=== PATIENT | female | born 1990 | race Two or more races ===

== ENCOUNTER 2025-05-23 08:50 | Outpatient (AMB) | payer BC, SELFPAY ==
[2025-05-23 09:07] VITALS: BP 137/88; PULSE 84; RESP 16; TEMP 36.5; O2SAT 98; BMI 41.3
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
== END 2025-05-23 09:40 | disposition home or self-care (01) ==
LOC: HODSOBC 08:50
PROVIDERS: Supervising Provider Obstetrics & Gynecology; Visit Provider Obstetrics & Gynecology
DX: Z31.69 Encounter for other general counseling and advice on procreation (principal); Z12.4 Encounter for screening for malignant neoplasm of cervix; I10 Essential (primary) hypertension; E78.00 Pure hypercholesterolemia, unspecified; Z97.5 Presence of (intrauterine) contraceptive device
CPT/HCPCS: 99204; Q0091; G0463